=== PATIENT | female | born 1950 | race Caucasian/White ===

== ENCOUNTER 2021-09-24 13:17 | Emergency (ER) | payer MEDICARE, OTHER ==
[~2021-09-24] VITALS: Ht 157.5 cm; Wt 72.6 kg
[2021-09-24 13:25] VITALS: BP_SYST 131
--- NOTE | 2021-09-24 13:25 | NUR ---
RECEIVED PT FROM EMT WITH REPORTS OF BILATERAL BUTTOCKS RASH. PT COMES FROM [place]. PT PLACED IN BED 2. AAOX2 WITH HX OF ALZHEIMER'S, ANXIETY, DEPRESSION. RESP E/U. VSS. Addendum: 09/24/21 at 1337 by [id number] PT ENDORSED TO JR [facility].
--- NOTE | 2021-09-24 13:26 | NUR ---
DR. COREA AT BEDSIDE TO ASSESS PT. PT NOTED WITH PERINEAL REDNESS AND BILATERAL BUTTOCK DIFFUSE RASH. DR. COREA STATED PT HAS FOLICULITUS AND WILL BE GIVEN PRESCRIPTION FOR MEDICATION AND SENT BACK TO FACILITY.
--- NOTE | 2021-09-24 13:50 | NUR ---
SPOKE TO ZACHARY MONTERO AT [facility] AND INFORMED HER PT WILL BE GIVEN NEW PRESCRIPTION FOR RASH ON BILATERAL BUTTOCKS AND WILL BE SENT BACK TO FACILITY. KYLAH STATED PT WILL NEED TO BE TRANSPORTED BY AMBULANCE TO RETURN, [facility] MADE AWARE PT WILL NEED AMBULANCE SCHEDULED FOR TRANSPORT.
--- NOTE | 2021-09-24 14:17 | NUR ---
CALLED PT'S [facility] TO REQUEST PHARMACY INFORMATION. LEFT MESSAGE AND AWAITING CALL BACK. ([phone]) AND ([phone]).
[2021-09-24] MEDS ORDERED: DOXY100C5 PO (14:27)
--- NOTE | 2021-09-24 14:37 | NUR ---
SPOKE TO PT'S SISTER KIRSTIE AND INFORMED HER PT HAS BEED PRESCRIBED MEDICATION FOR FOLLICULITUS, THE RX HAS BEEN SENT TO [facility] IN [place]. [facility] WILL SET UP TRANPORT FOR THE PT BACK TO THE FACILITY. KIRSTIE VERBALIZED UNDERSTANDING. SPOKE TO ZACHARY MONTERO AT [facility] AND RESTATED INFORMATION GIVEN TO PT'S SISTER KIRSTIE, KYLAH VERBALIZE UNDERSTANDING.
--- NOTE | 2021-09-24 15:23 | NUR ---
TIMOTEO EGAN(EMT) MEDIC 1, PT AWARE OF DC, VSS APPEARS TO BE IN NO ACUTE DISTRESS NOTED AT THIS TIME
== END 2021-09-24 15:32 | disposition home or self-care (01) ==
LOC: SED 13:17
DX: L73.8 Other specified follicular disorders (principal); Z79.899 Other long term (current) drug therapy
CPT/HCPCS: 99283